=== PATIENT | female | born 1960 | race Caucasian/White ===

== ENCOUNTER 2023-12-01 21:11 | Emergency (ER) | payer MEDICARE, OTHER ==
[~2023-12-01] VITALS: Ht 165.1 cm; Wt 74.8 kg
[2023-12-01 21:15] VITALS: TEMP 98.2
[2023-12-01] MEDS ORDERED: KETOROLAC TROMETHAMINE INJ 30 MG/ML VIAL ONE (21:37)
[2023-12-01] MEDS: KETOROLAC TROMETHAMINE INJ 30 MG/ML VIAL IV ONE (21:43)
[2023-12-02 00:58] VITALS: BP 128/79; O2SAT 98
== END 2023-12-02 00:59 ==
LOC: ER 21:13
DX: S43.401A Unspecified sprain of right shoulder joint, initial encounter (principal); M70.811 Other soft tissue disorders related to use, overuse and pressure, right shoulder; Z88.8 Allergy status to other drugs, medicaments and biological substances; W06.XXXA Fall from bed, initial encounter; Y93.89 Activity, other specified; Y92.89 Other specified places as the place of occurrence of the external cause; Y99.8 Other external cause status
CPT/HCPCS: 99283; 96374; 73030; J1885